=== PATIENT | male | born 1965 | race Caucasian/White ===

== ENCOUNTER 2016-10-15 08:36 | Emergency (ER) | payer BC ==
[~2016-10-15] VITALS: Ht 165.1 cm; Wt 81.6 kg
[~2016-10-15 08:36] MED LIST: CPR500T PO; ERGO2000 PO; ESTR1TAB24 PO; FENO54TA PO; HYDR-3454 PO; LEVO750T24 PO; LVT.05T PO; MTF500T PO; MULT1CAP27 PO; SULF1TAB35 PO
[2016-10-15] MEDS ORDERED: ONDANSETRON 4 MG/2 ML (SDV) Z0FRAN IVP ONE (08:45)
[2016-10-15] MEDS ORDERED: SCOPOLAMINE 1.5 MG (TRANSDERM-SCOP) PATCH TD ONE (08:45)
[2016-10-15 08:51] LABS: BASOPHILS % (AUTO) 1 % (0-10); EOSINOPHILS # (AUTO) 0.3 10^3/uL (0.0-0.3); EOSINOPHILS % (AUTO) 6 % (0-10); LYMPHOCYTES # (AUTO) 2.1 X 10^3 (1.0-4.0); LYMPHOCYTES % (AUTO) 36 % (12-44); MEAN CORPUSCULAR HEMOGLOBIN 30 PG (25-34); MEAN CORPUSCULAR HGB CONC 34 G/DL (32-36); MEAN CORPUSCULAR VOLUME 86 FL (80-99); MEAN PLATELET VOLUME 10.6 FL (7.4-10.4); MONOCYTES # (AUTO) 0.4 X 10^3 (0.0-1.0); MONOCYTES % (AUTO) 6 % (0-12); NEUTROPHILS % (AUTO) 52 % (42-75); PLATELET COUNT 168 10^3/uL (130-400); RED BLOOD COUNT 5.47 10^6/uL (4.35-5.85); RED CELL DISTRIBUTION WIDTH 13.4 % (10.0-14.5); WHITE BLOOD COUNT 5.8 10^3/uL (4.3-11.0)
--- NOTE | 2016-10-15 08:51 | ED General ---
General Stated Complaint: CHEST PAIN,DIZZINESS Source of Information: Patient History of Present Illness Time Seen by Provider: 08:38 Initial Comments PT ARRIVES VIA POV FROM HOME STATES HE WOKE UP AT 0100 WITH CHEST PAIN, LASTED 10 MINUTES AND HE WENT BACK TO SLEEP. [place] [address], ROLLED OVER IN BED AND SUDDENLY BECAME VERY DIZZY AND COULDN' T HARDLY GET OUT OF BED DUE TO SEVERE DIZZINESS--EVERYTHING IS SPINNING HAVING DIFFICULTY WALKING DUE TO DIZZINESS AND FEELING OFF BALANCE HAS HEADACHE IN BACK OF HEAD--RATES 11/18--STATES IT IS WORSE THAN "MIGRAINES" HE HAS HAD IN THE PAST C/O NAUSEA, NO VOMITING STATES HE HAS TO KEEP HIS EYES CLOSED DUE TO DIZZINESS, IS NOT SURE IF VISION IS BLURRY OR NOT NO PARESTHESIAS OR MOTOR DEFICITS STATES HE FEELS SLIGHTLY SHORT OF BREATH PT HAS HAD NIGHT SWEATS FOR MANY YEARS AND IS NOT DIFFERENT TODAY WAS MILDLY DIZZY YESTERDAY, NOT THIS BAD HAS HISTORY OF CHEST PAIN YEARS AGO.-WORK UP IN THE PAST WAS NEGATIVE. NO PROBLEMS SINCE THEN PCP: DR. KEYES Allergies and Home Medications Allergies Coded Allergies: Penicillins (Unverified Allergy, Mild, 11/28/08) Home Medications Fenofibrate 54 Mg Tablet, 54 MG PO DAILY, (Reported) Hydrocodone Bit/Acetaminophen 1 Each Tablet, 1-2 TAB PO Q4-6HR PRN for PAIN, #30 Prescribed by: JOJO WIN on 05/09/14 1219 Levothyroxine Sodium 50 Mcg Tablet, 50 MCG PO DAILY, (Reported) Multivitamins 1 Each Capsule, 1 EACH PO DAILY, (Reported) Constitutional: see HPI, diaphoresis, dizziness EENTM: see HPI Respiratory: see HPI Cardiovascular: see HPI Gastrointestinal: see HPI Musculoskeletal: no symptoms reported Skin: no symptoms reported Psychiatric/Neurological: See HPI Hematologic/Lymphatic: No Symptoms Reported Immunological/Allergic: no symptoms reported Past Rfensmq-Iyjbim-Tglsgs Hx Patient Social History Recent Foreign Travel: No Contact w/Someone Who Travel: No Surgeries HX Surgeries: Yes (left shoulder, left knee scope, nose reconstruction) Surgeries: Orthopedic Respiratory Hx Respiratory Disorders: No Cardiovascular Hx Cardiac Disorders: Yes Cardiac Disorders: High Cholesterol Neurological Hx Neurological Disorders: No Reproductive System Hx Reproductive Disorders: No Genitourinary Hx Genitourinary Disorders: No Gastrointestinal Hx Gastrointestinal Disorders: No Musculoskeletal Hx Musculoskeletal Disorders: Yes Musculoskeletal Disorders: Arthritis Endocrine Hx Endocrine Disorders: Yes (SUPPOSED TO TAKE METFORMIN, BUT QUIT TAKING IT DUE TO DIARRHEA) Endocrine Disorders: Hypothyroidsim, Diabetes, Non-Insulin dep HEENT HX ENT Disorders: No Cancer Hx Cancer: No Psychosocial Hx Psychiatric Problems: No Integumentary HX Skin/Integumentary Disorder: No Blood Transfusions Hx Blood Disorders: No Physical Exam Vital Signs Vital Sign - Last 12Hours 10/15/16 08:37 Temp 97.8 Pulse 68 Resp 18 B/P (MAP) 171/117 Pulse Ox 97 Capillary Refill : General Appearance: No Apparent Distress, WD/WN, Other (KEEPS EYES CLOSED) HEENT: PERRL/EOMI, TMs Normal, Normal ENT Inspection, Pharynx Normal Neck: Full Range of Motion, Normal Inspection, Non Tender, Supple, No Carotid Bruit, No JVD Respiratory: Normal Breath Sounds, No Accessory Muscle Use, No Respiratory Distress Cardiovascular: Regular Rate, Rhythm, No Edema, No JVD, No Murmur, Normal Peripheral Pulses Gastrointestinal: Normal Bowel Sounds, No Organomegaly, No Pulsatile Mass, Non Tender, Soft Back: Normal Inspection, No CVA Tenderness, No Vertebral Tenderness Extremity: Normal Capillary Refill, Normal Inspection, Normal Range of Motion, Non Tender, No Calf Tenderness, No Pedal Edema Neurologic/Psychiatric: Alert, Oriented x3, No Motor/Sensory Deficits, Normal Mood/Affect, manager endoscopy II-XII Norm as Tested, Other (NORMAL FINGER TO NOSE, AND HEEL TO [place]. ) Skin: Normal Color, Warm/Dry, No Diaphoresis Progress/Results/Core Measures Results/Orders Lab Results Laboratory Tests Test 10/15/16 08:40 Range/Units White Blood Count 5.8 4.3-11.0 10^3/uL Red Blood Count 5.47 4.35-5.85 10^6/uL Hemoglobin 16.2 13.3-17.7 G/DL Hematocrit 47 40-54 % Mean Corpuscular Volume 86 80-99 FL Mean Corpuscular Hemoglobin 30 25-34 PG Mean Corpuscular Hemoglobin Concent 34 32-36 G/DL Red Cell Distribution Width 13.4 10.0-14.5 % Platelet Count 168 130-400 10^3/uL Mean Platelet Volume 10.6 H 7.4-10.4 FL Neutrophils (%) (Auto) 52 42-75 % Lymphocytes (%) (Auto) 36 12-44 % Monocytes (%) (Auto) 6 0-12 % Eosinophils (%) (Auto) 6 0-10 % Basophils (%) (Auto) 1 0-10 % Neutrophils # (Auto) 3.0 1.8-7.8 X 10^3 Lymphocytes # (Auto) 2.1 1.0-4.0 X 10^3 Monocytes # (Auto) 0.4 0.0-1.0 X 10^3 Eosinophils # (Auto) 0.3 0.0-0.3 10^3/uL Basophils # (Auto) 0.0 0.0-0.1 10^3/uL Prothrombin Time 11.4 L 12.2-14.7 SEC INR Comment 0.9 0.8-1.4 Activated Partial Thromboplast Time 29 24-35 SEC Sodium Level 139 135-145 MMOL/L Potassium Level 4.1 3.6-5.0 MMOL/L Chloride Level 105 98-107 MMOL/L Carbon Dioxide Level 22 21-32 MMOL/L Anion Gap 12 5-14 MMOL/L Blood Urea Nitrogen 17 7-18 MG/DL Creatinine 0.82 0.60-1.30 MG/DL Estimat Glomerular Filtration Rate > 60 BUN/Creatinine Ratio 21 Glucose Level 102 70-105 MG/DL Calcium Level 9.8 8.5-10.1 MG/DL Magnesium Level 2.5 H 1.8-2.4 MG/DL Total Bilirubin 1.0 0.1-1.0 MG/DL Aspartate Amino Transf (AST/SGOT) 18 5-34 U/L Alanine Aminotransferase (ALT/SGPT) 44 0-55 U/L Alkaline Phosphatase 51 40-136 U/L Total Creatine Kinase 85 30-200 U/L Creatine Kinase MB 1.4 <6.6 NG/ML Troponin I < 0.30 <0.30 NG/ML B-Type Natriuretic Peptide < 10.0 <100.0 PG/ML Total Protein 7.6 6.4-8.2 G/DL Albumin 4.8 H 3.2-4.5 G/DL Amylase Level 25 25-125 U/L Lipase 25 8-78 U/L My Orders Orders - STEFFEN SAEED DO Amylase (10/15/16 08:38) Cbc With Automated Diff (10/15/16 08:38) Comprehensive Metabolic Panel (10/15/16 08:38) Creatine Kinase (10/15/16 08:38) Creatine Kinase Mb (10/15/16 08:38) Lipase (10/15/16 08:38) Partial Thromboplastin Time (10/15/16 08:38) Protime With Inr (10/15/16 08:38) Troponin I (10/15/16 08:38) O2 (10/15/16 08:38) Ekg Tracing (10/15/16 08:38) BNP (10/15/16 08:38) Monitor-Rhythm Ecg Trace Only (10/15/16 08:38) Magnesium (10/15/16 08:38) Scopolamine Patch (Transderm-Scop Patch) (10/15/16 08:45) Ondansetron Injection (Zofran Injectio (10/15/16 08:45) Ct Head Wo (10/15/16 08:44) Accucheck Stat ONCE (10/15/16 08:59) Chest 1 View, Ap/Pa Only (10/15/16 09:16) Meclizine Tablet (Antivert Tablet) (10/15/16 09:30) Diazepam Injection (Valium Injection) (10/15/16 09:30) Ketorolac Injection (Toradol Injection) (10/15/16 09:30) Medications Given in ED Current Medications Medications Dose Ordered Sig/Jerod Route Start Time Stop Time Status Last Admin Dose Admin Diazepam 2.5 mg ONCE ONCE IV 10/15/16 09:30 10/15/16 09:31 DC 10/15/16 09:32 2.5 MG Ketorolac Tromethamine 30 mg ONCE ONCE IVP 10/15/16 09:30 10/15/16 09:59 DC 10/15/16 09:37 30 MG Meclizine HCl 50 mg ONCE ONCE PO 10/15/16 09:30 10/15/16 09:31 DC 10/15/16 09:32 50 MG Ondansetron HCl 4 mg ONCE ONCE IVP 10/15/16 08:45 10/15/16 08:46 DC 10/15/16 08:47 4 MG Scopolamine 1.5 mg ONCE ONCE TD 10/15/16 08:45 10/15/16 08:46 DC 10/15/16 08:48 1.5 MG Vital Signs/I&O Vital Sign - Last 12Hours 10/15/16 08:37 Temp 97.8 Pulse 68 Resp 18 B/P (MAP) 171/117 Pulse Ox 97 Progress Note : Progress Note ALL SYMPTOMS NEARLY COMPLETELY RESOLVED WITH MEDICATIONS --STATES HE FEELS "100 % BETTER" AND PT IS ABLE TO STAND AND WALK WITHOUT DIFFICULTY AND HEADACHE IS GONE PRIOR TO DISMISSAL PT FEELS COMFORTABLE GOING HOME ECG Initial ECG Impression Time: 08:40 Initial ECG Rate: 76 Initial ECG Rhythm: Normal Sinus Initial ECG Comparisson: Unchanged Diagnostic Imaging Comments CT HEAD--NO ACUTE PROCESS, PER RADIOLOGIST REPORT @ 0924 CXR--NO ACUTE PROCESS, PER RADIOLOGIST REPORT @ Reviewed: Reviewed by Me Departure Impression Impression: Primary Impression: Vertigo Additional Impressions: BRIEF CHEST PAIN HTN (hypertension) Disposition: 01 HOME, SELF-CARE Condition: Improved Departure-Patient Inst. Referrals: VIKASH KEYES DO (PCP) Primary Care Physician DEANNA KEYES DNP (Family) Primary Care Physician Patient Instructions: Chest Pain (DC), High Blood Pressure (DC), Vertigo (a Type of Dizziness) (DC) Add. Discharge Instructions: SLOW POSITION CHANGES LOTS OF CLEAR LIQUIDS FOLLOW UP WITH DR. KEYES IN 1-2 DAYS RETURN TO ER IF WORSE Scripts Diazepam (Valium) 5 Mg Tablet 0.5-1 TAB PO Q4H for Dizziness, #10 TAB Prov: STEFFEN SAEED DO 10/15/16 Meclizine HCl (Meclizine HCl) 25 Mg Tablet 25-50 MG PO Q6H for Dizziness, #30 TAB Prov: STEFFEN SAEED DO 10/15/16 Ondansetron (Zofran Odt) 4 Mg Tab.rapdis 4 MG PO Q4H for Nausea/Vomiting, #10 TAB Prov: STEFFEN SAEED DO 10/15/16 Scopolamine (Transderm-Scop) 1 Each Patch.td72 1 EACH TD Q72 HOURS for Dizziness, #3 PATCH Prov: STEFFEN SAEED DO 10/15/16 STEFFEN SAEED DO Oct 15, 2016 08:51
[2016-10-15 09:06] LABS: INR 0.9 (0.8-1.4); PROTHROMBIN TIME PATIENT 11.4 SEC (12.2-14.7)
[2016-10-15 09:13] LABS: ALANINE AMINOTRANSFERASE 44 U/L (0-55); ALBUMIN 4.8 G/DL (3.2-4.5); AMYLASE 25 U/L (25-125); ANION GAP 12 MMOL/L (5-14); ASPARTATE AMINO TRANSFERASE 18 U/L (5-34); BLOOD UREA NITROGEN 17 MG/DL (7-18); BUN/CREATININE RATIO 21; CALCIUM 9.8 MG/DL (8.5-10.1); CARBON DIOXIDE 22 MMOL/L (21-32); CHLORIDE 105 MMOL/L (98-107); CREATINE KINASE 85 U/L (30-200); CREATININE SERUM 0.82 MG/DL (0.60-1.30); GFR ESTIMATED > 60; GLUCOSE 102 MG/DL (70-105); LIPASE 25 U/L (8-78); MAGNESIUM 2.5 MG/DL (1.8-2.4); POTASSIUM 4.1 MMOL/L (3.6-5.0); SODIUM 139 MMOL/L (135-145); TOTAL PROTEIN 7.6 G/DL (6.4-8.2)
[2016-10-15 09:19] LABS: TROPONIN I < 0.30 NG/ML (<0.30)
--- NOTE | 2016-10-15 09:22 | Diagnostic Imaging Report ---
PROCEDURE: CT head without contrast. TECHNIQUE: Multiple contiguous axial images were obtained through the brain without the use of intravenous contrast. INDICATION: Refractory headache The ventricles are normal in size, shape and position. There are no masses or hemorrhages. There are no extra-axial fluid collections. Impression: Negative CT head Dictated by: Dictated on workstation # [id number]
--- NOTE | 2016-10-15 09:23 | Diagnostic Imaging Report ---
INDICATION: Shortness of breath EXAMINATION: Portable chest at 9:03 AM. Heart size and pulmonary vascularity are normal. Lungs are clear. There are no effusions or pneumothoraces. IMPRESSION: Negative chest. Dictated by: Dictated on workstation # [id number]
[2016-10-15] MEDS ORDERED: KETOROLAC 30 MG/ML VIAL IVP ONE (09:30)
[2016-10-15] MEDS ORDERED: DIAZEPAM INJ 10 MG/2 ML (VALIUM) SYR IV ONE (09:30)
[2016-10-15] MEDS ORDERED: MECLIZINE 25 MG (ANTIVERT) TAB PO ONE (09:30)
[2016-10-15] MEDS ORDERED: ONDA4TAB8 PO (10:08)
[2016-10-15] MEDS ORDERED: MECL-106 PO (10:08)
[2016-10-15] MEDS ORDERED: SCOP1PAT TD (10:08)
[2016-10-15] MEDS ORDERED: DIAZ5TAB PO (10:08)
[2016-10-15 10:22] VITALS: BP 149/85
== END 2016-10-15 10:22 | disposition home or self-care (01) ==
LOC: EDUNIT# 08:36 → ER 08:39
DX: R42 Dizziness and giddiness (principal); E03.9 Hypothyroidism, unspecified; I10 Essential (primary) hypertension; R07.9 Chest pain, unspecified; E11.9 Type 2 diabetes mellitus without complications
CPT/HCPCS: 36415; 70450; 71010; 80053; 82150; 82550; 82553; 82962; 83690; 83735; 83880; 84484; 85025; 85610; 85730; 93005; 93041

== ENCOUNTER → 2017-04-15 | Outpatient (CLI) | payer BC ==
[~2017-04-15] MED LIST changes: +DIAZ5TAB PO; +MECL-106 PO; +ONDA4TAB8 PO; +SCOP1PAT TD
--- NOTE | 2017-04-15 11:10 | Diagnostic Imaging Report ---
EXAMINATION: Scrotal ultrasound. INDICATION: Left-sided scrotal pain. FINDINGS: The right testicle is 4.7 x 2.8 x 3.1 cm. The left testicle is 4.5 x 2.7 x 3.3 cm. Both testicles demonstrate homogeneous echotexture with no focal mass. Arterial waveforms are demonstrated over both testicles. Bilateral mild hydroceles are seen. No varicocele. No epididymis abnormality is identified. IMPRESSION: Bilateral small hydroceles. Dictated by: Dictated on workstation # [id number]
== END ==
LOC: RAD 09:09
PROVIDERS: ATTEND Urology
DX: N43.3 Hydrocele, unspecified (principal)
CPT/HCPCS: 76870

== ENCOUNTER 2020-08-28 05:39 | Outpatient (CLI) | payer BC ==
[~2020-08-28] VITALS: Ht 166 cm; Wt 86.4 kg
[~2020-08-28 05:39] MED LIST changes: -MECL-106 PO; +MECL-149 PO; -SCOP1PAT TD; +SCOP1PAT11 TD
[2020-08-28] MEDS ORDERED: ASPI-999 PO (11:10)
[2020-08-28] MEDS ORDERED: GREE1CAP PO (11:10)
[2020-08-28] MEDS ORDERED: BUSP5TAB59 PO (11:10)
[2020-08-28] MEDS ORDERED: ALPR0.5T7 PO (11:10)
[2020-08-28] MEDS ORDERED: CHOL500050 PO (11:10)
[2020-08-28] MEDS ORDERED: ATOR80TA76 PO (11:10)
[2020-08-28] MEDS ORDERED: NAPR-915 PO (11:10)
[2020-08-28] MEDS ORDERED: ACYC800T PO (11:10)
[2020-08-28] MEDS ORDERED: CARV12.53 PO (11:10)
[2020-08-28] MEDS ORDERED: CLOP75TA69 PO (11:10)
[2020-08-28] MEDS ORDERED: LISI40TA9 PO (11:10)
[2020-08-28] MEDS ORDERED: LEVO75TA6 PO (11:10)
[2020-08-28] MEDS ORDERED: VITA1TAB33 PO (11:10)
[2020-08-28] MEDS ORDERED: [UNRECOGNIZED DRUG - CODE] PO (11:10)
== END 2020-08-28 11:24 | disposition home or self-care (01) ==
LOC: PREOP 05:39
PROVIDERS: ATTEND Orthopaedic Surgery
DX: Z01.818 Encounter for other preprocedural examination (principal)

== ENCOUNTER 2020-09-06 05:58 | Day surgery (SDC) | payer BC ==
--- NOTE | 2020-08-24 08:10 | HISTORY AND PHYSICAL ---
DATE OF SERVICE: ADMISSION HISTORY AND PHYSICAL DATE OF ADMISSION: 09/06/2020. This will be for outpatient surgery on 09/06/2020 for left knee arthroscopy. HISTORY OF PRESENT ILLNESS: The patient is a 55-year-old gentleman with complaints of left knee pain. He has previously undergone a left knee arthroscopy, but reports progressively worsening left knee pain, catching, locking and swelling. He reports pain with twisting and kneeling. He reports this is limiting his work activities. He denies any specific injury. Radiographs reveal mild medial patellofemoral joint space narrowing. Due to functional impairment and failure to improve with conservative measures, the patient has elected to proceed with the surgical intervention. REVIEW OF SYSTEMS: No chest pain, no shortness of breath, and no dysuria. PAST MEDICAL HISTORY: Coronary artery disease. PAST SURGICAL HISTORY: Left shoulder arthroscopy, left knee arthroscopy, deviated septum, cardiac catheterization, and coronary stent placement. FAMILY HISTORY: Significant for cancer. PRIMARY CARE PROVIDER: Dr. Herring. MEDICATIONS: Tyrosine, carvedilol, atorvastatin, Plavix, lisinopril, buspirone, alprazolam, levothyroxine, acyclovir, and Naprosyn. ALLERGIES: PENICILLIN. SOCIAL HISTORY: The patient denies tobacco use. He drinks alcohol rarely. PHYSICAL EXAMINATION: GENERAL: The patient is well-developed, well-nourished, in no acute distress. HEENT: Normocephalic and atraumatic. Pupils are equal, round, and reactive to light. Oropharynx is clear. NECK: Supple, no lymphadenopathy. LUNGS: Clear to auscultation bilaterally. HEART: Regular rate and rhythm. ABDOMEN: Soft, nontender, nondistended. EXTREMITIES: The left knee demonstrates varus alignment. He has a mild effusion. He is tender along his medial joint space. He has pain medially with Franchesca. There is no varus valgus laxity. Negative anterior and posterior drawer. Ambulates with an antalgic gait. IMPRESSION: Left knee medial meniscus tear with chondromalacia. PLAN: Left knee arthroscopy, partial medial meniscectomy and chondroplasty. The risks, benefits, options, ramifications and recovery were discussed at length with the patient. He understands and wishes to proceed. Job ID: [id number] DocumentID: [id number] Dictated Date: 08/21/2020 08:17:43 Cool Roofing Installer Date: 08/21/2020 09:52:07 Dictated By: LUNA STORY MD
[~2020-09-06] VITALS: Ht 166 cm; Wt 86.4 kg
[2020-09-06] VITALS (11 sets, daily range): BP systolic 114–147; BP diastolic 79–102
[~2020-09-06 05:58] MED LIST changes: +ACYC-112 PO; +ALPR0.5T7 PO; +ASPI-999 PO; +ATOR80TA76 PO; +BUSP5TAB59 PO; +CARV12.53 PO; +CHOL500050 PO; +CLOP75TA69 PO; +GREE1CAP PO; +LEVO75TA6 PO; +LISI40TA9 PO; +NAPR-915 PO; +VITA1TAB33 PO; +[UNRECOGNIZED DRUG - CODE] PO
[2020-09-06] MEDS ORDERED: CLINDAMYCIN 600 MG/50 ML IVPB 50 ML IV ONE (06:00)
[2020-09-06] MEDS: LACTATED RINGERS 1,000 ML IV PRN ×2 (06:23→08:08)
[2020-09-06] MEDS ORDERED: proPOfol 200 MG/20 ML (DIPRIVAN) VIAL IV ONE ×2 (06:30→07:38)
[2020-09-06] MEDS ORDERED: fentaNYL INJ 100 MCG/2 ML AMP ONE (06:30)
[2020-09-06] MEDS ORDERED: LIDOCAINE PF 2% 5 ML (XYLOCAINE) VIAL ONE (06:30)
[2020-09-06] MEDS ORDERED: ONDANSETRON 4 MG/2 ML (SDV) Z0FRAN ONE (06:30)
[2020-09-06] MEDS ORDERED: MIDAZOLAM 2 MG/2 ML (VERSED) VIAL ONE (06:31)
[2020-09-06] MEDS ORDERED: SEVOFLURANE (ULTANE) 15 ML INHAL SOLN ONE (06:41)
[2020-09-06] MEDS ORDERED: morphine PF (DURAMORPH) 10 MG/10 ML AMP ONE (07:08)
[2020-09-06] MEDS ORDERED: BUPIVACAINE 0.25% 30 ML (SENSORCAINE) VIAL ONE (07:08)
[2020-09-06] MEDS ORDERED: HYDROcodone/APAP 7.5 MG/325 MG (LORTAB, LORCET PLUS) TABLET PO PRN (07:15)
--- NOTE | 2020-09-06 07:25 | Progress Note-Pre Operative ---
Pre-Operative Progress Note H&P Reviewed The H&P was reviewed, patient examined and no changes noted. Date Seen by Provider: Sep 06, 2020 Time Seen by Provider: 07:15 Date H&P Reviewed: Sep 06, 2020 Time H&P Reviewed: 07:11 Pre-Operative Diagnosis: left knee medial meniscus tear and chondromalacia LUNA STORY MD Sep 06, 2020 07:25
--- NOTE | 2020-09-06 07:26 | Progress Note-Post Operative ---
Post-Operative Progess Note Surgeon (s)/Blower And Compressor Assembler (s) Surgeon LUNA STORY MD Blower And Compressor Assembler: Karsten Holcomb Pre-Operative Diagnosis left knee medial meniscus tear and chondromalacia Post-Operative Diagnosis left knee medial meniscus tear and chondromalacia of the medial femoral condyle and trochlea Procedure & Operative Findings Date of Procedure 09/06/20 Procedure Performed/Findings left knee arthroscopic partial medial meniscectomy and chondroplasty of the medial femoral condyle and trochlea Anesthesia Type GETA Estimated Blood Loss Estimated blood loss (mL): minimal Specimens/Packing Specimens Removed none Packing: none LUNA STORY MD Sep 06, 2020 07:26
[2020-09-06] MEDS ORDERED: morphine INJ 10 MG/ML 1ML (SYR OR VIAL) IVP ONE (07:30)
[2020-09-06] MEDS ORDERED: HYDROmorphone 2 MG/ML VIAL (DILAUDID) IV ONE (07:30)
[2020-09-06] MEDS ORDERED: ONDANSETRON 4 MG/2 ML (SDV) Z0FRAN IVP PRN (07:30)
[2020-09-06] MEDS ORDERED: HYDROmorphone 2 MG/ML VIAL (DILAUDID) ONE (07:47)
[2020-09-06] MEDS ORDERED: ESMOLOL 100 MG/10 ML (BREVIBLOC) VIAL ONE (08:00)
[2020-09-06] MEDS ORDERED: HYDR-3817 PO ×2 (09:28→09:30)
--- NOTE | 2020-09-06 09:57 | Anesthesia-General Post-Op ---
General Patient Condition Mental Status/LOC: Same as Preop Cardiovascular: Satisfactory Nausea/Vomiting: Absent Respiratory: Satisfactory Pain: Controlled Complications: Absent Post Op Complications Complications None Follow Up Care/Instructions Patient Instructions None needed. Anesthesia/Patient Condition Patient Condition Patient is doing well, no complaints, stable vital signs, no apparent adverse anesthesia problems. CLAUDETTE CORONEL DO Sep 06, 2020 09:57
--- NOTE | 2020-09-06 12:31 | Physical Therapy Ortho Eval ---
PT Orthopedic Evaluation Type of Surgery Knee Scope (L TMM) Prior Level of Function Current Living Status: Spouse Locomotion (Upon Admit): Independent Established Durable Medical Eq: Front Wheeled Walker, Crutches Subjective Subjective Pt reports he has crutches at home and a FWW; reports he has used both before. Reports he has been performing the ther ex at home as well. Entry Into Home: Stairs With Railing Steps Into Home: 2 (with railing) Motor Control Motor Control: Motor Control WNL ROM ROM: WFL Strength Strength: WFL Transfer SCALE: Activities may be completed with or without assistive devices. 4-Mlkaxyohsv-iygbxit completes the activity by him/herself with no assistance from a helper. 5-Set-up or Clean-up Assistance-helper sets up or cleans up; patient completes activity. [place] assists only prior to or following the activity. 4-Supervision or Touching Assistance-helper provides verbal cues and/or touching/steadying and/or contact guard assistance as patient completes activity. Assistance may be provided throughout the activity or intermittently. 3-Partial/Moderate Assistance-helper does LESS THAN HALF the effort. [place] lifts, holds or supports trunk or limbs, but provides less than half the effort. 2-Substantial/Maximal Assistance-helper does MORE THAN HALF the effort. [place] lifts or holds trunk or limbs and provides more than half the effort. 2-Cjncafsrj-kjeryj does ALL the effort. Patient does none of the effort to complete the activity. Or, the assistance of 2 or more helpers is required for the patient to complete the activity. If activity was not attempted, code reason: 7-Patient Refused. 9-Not Applicable-not attempted and the patient did not perform the activity before the current illness, exacerbation or injury. 10-Not Attempted due to Environmental Limitations-(lack of equipment, weather restraints, etc.). 88-Not Attempted due to Medical Conditions or Safety Concerns. Transfers (B, C, W/C) (QC): 4 (6 post eval) Gait Gait Assistive Device: FWW Right Lower Extremity: Right Weight Bearing Status RLE: Full Weight Bearing Left Lower Extremity: Left Weight Bearing Status LLE: Weight Bearing/Tolerated Gait (QC): 4 (6 post visit) Distance (QC): 3=150 ft Summary/Comments Gait training with FWW, pt demonstrated mod indep and safe; up/down a step with walker with correct sequencing. Education in use of crutches, should he decide to use later. Verbalized understanding. Education on WBAT Treatment Rendered Treatment: Therapeutic Exercises, Gait Train, Step Train Exercise Instruction: Quad Sets, Straight Leg Raise, Heel Slides Assessment/Goals Goal Time Frame: 1 Visit Understands HEP: Yes Safe Ambulation: Yes Plan Treatment Plan: Discharge Pt understands HEP; pt safe with use of FWW on level surfaces and steps. PT/Family Agrees to Plan: Yes Time Time In: 940 Time Out: 1000 Total Billed Treatment Time: 20 Billed Treatment Time visit EVL 20 СЕРГЕЙ GOMES PT Sep 06, 2020 12:31
--- NOTE | 2020-09-06 12:55 | OPERATIVE REPORT ---
DATE OF SERVICE: 09/06/2020 PREOPERATIVE DIAGNOSES: 1. Left knee medial meniscus tear. 2. Left knee chondromalacia of the medial femoral condyle. POSTOPERATIVE DIAGNOSES: 1. Left knee medial meniscus tear. 2. Left knee chondromalacia of the medial femoral condyle. 3. Left knee chondromalacia of the trochlea. PROCEDURES: 1. Left knee arthroscopic partial medial meniscectomy. 2. Left knee arthroscopic chondroplasty of the medial femoral condyle. 3. Left knee arthroscopic chondroplasty of the trochlea. SURGEON: Thomas Story MD MANAGER LANGUAGE: Karsten Holcomb, who assisted throughout the procedure and closed the incisions. ANESTHESIA: General endotracheal by Dr. Wolfe. TOURNIQUET TIME: Not applicable. ESTIMATED BLOOD LOSS: Minimal. DRAINS: None. COMPLICATIONS: None. POSTOPERATIVE PLAN: Routine arthroscopy protocol. The patient was transferred to the recovery room awake and in stable condition. STATEMENT OF MEDICAL NECESSITY: The patient is a 55-year-old gentleman with progressively worsening left medial knee pain, catching, locking and swelling. He had tenderness along his medial joint line and had pain with patellar loading. Radiographs revealed moderate medial joint space narrowing due to functional impairment and failure to improve with conservative measures. The patient elected to proceed with surgical intervention. Examination under anesthesia revealed range of motion of 0/2/130 with negative Roberto, negative anterior and posterior drawer. No varus valgus laxity, negative pivot shift. Arthroscopic findings, the patella demonstrated grade II chondral softening centrally with no unstable chondral flaps. The trochlea demonstrated grade IV chondral flap in a 5 x 5 area centrally. The medial and lateral gutters were clear. ACL and PCL were intact. Lateral compartment demonstrated no significant meniscal or chondral pathology. The medial compartment demonstrated grade IV chondral loss in an 8 x 8 area over the medial aspect of the tibial plateau. The femoral condyle demonstrated grade III chondral loss in a 15 x 15 area centrally. The posterior horn of the medial meniscus demonstrated a complex tear, which extended into the body and involved approximately one-half of the posterior horn and body. DESCRIPTION OF PROCEDURE: After risks and benefits of procedure were discussed and questions were answered, an informed consent was signed and placed on chart, the operative site was confirmed in the preoperative holding area initialed by the surgeon. The patient was then transported to the operating room. After adequate levels of general endotracheal anesthetic were obtained, a timeout was called, confirming the operative site and examination under anesthesia was performed with above findings noted. The left lower extremity was prepped and draped in the usual sterile fashion. The knee joint was injected with 60 mL of fluid and standard inferolateral portal placed with the arthroscope under direct visualization, inferior medial portal was created. The menisci and cruciates carefully probed with the above findings noted. The unstable chondral flap on the trochlea was debrided with a shaver and a biter back to a stable edge. This was carefully probed with no further tearing or instability noted. Scope was redirected into the medial compartment and unstable chondral flap on the medial femoral condyle was debrided with a shaver back to a stable edge and the posterior horn and body. The medial meniscus was debrided with a shaver and biter back to a stable edge. This was carefully probed with no further tearing or instability noted. The knee was copiously irrigated. Port sites were closed with 4-0 nylon in simple interrupted fashion. Knee was injected with Duramorph. Port sites were infiltrated with plain Marcaine. A soft dressing was applied. The patient was transferred to the recovery room awake and in stable condition. Job ID: [id number] DocumentID: [id number] Dictated Date: 09/06/2020 08:23:58 Solutions Manager Date: 09/06/2020 12:53:07 Dictated By: THOMAS STORY MD
== END 2020-09-06 10:20 | disposition home or self-care (01) ==
LOC: SDC 05:58
PROVIDERS: ATTEND Orthopaedic Surgery
DX: S83.242A Other tear of medial meniscus, current injury, left knee, initial encounter (principal); M94.262 Chondromalacia, left knee; I10 Essential (primary) hypertension; G47.33 Obstructive sleep apnea (adult) (pediatric); E03.9 Hypothyroidism, unspecified; M19.90 Unspecified osteoarthritis, unspecified site; G62.9 Polyneuropathy, unspecified; E66.9 Obesity, unspecified; Z68.31 Body mass index [BMI] 31.0-31.9, adult; Z79.890 Hormone replacement therapy; Z79.899 Other long term (current) drug therapy; Z88.0 Allergy status to penicillin; Z95.5 Presence of coronary angioplasty implant and graft
CPT/HCPCS: 87081

== ENCOUNTER → 2021-01-09 | Outpatient (CLI) | payer BC ==
[~2021-01-09] MED LIST changes: +CATHETER FLUSH 10 ML SYR IV PRN; +HYDR-3817 PO; +REGADENOSON 0.4 MG/5 ML SYR (LEXISCAN) IV ONE
[2021-01-09 13:02] VITALS: BP 144/89
--- NOTE | 2021-01-10 10:10 | STRESS TEST ---
DATE OF SERVICE: 01/09/2021 RESTING AND POST REGADENOSON TECHNETIUM-99M TETROFOSMIN SPECT CT IMAGING ORDERING PHYSICIAN: Dr. Pino. PRIMARY PHYSICIAN: Dr. Herring. CLINICAL DIAGNOSIS: Coronary artery disease. Baseline images were carried out after injection of 10.36 mCi of technetium-99m Tetrofosmin. This was followed by 0.4 mg regadenoson and 29.5 mCi of technetium-99m Tetrofosmin. Stress imaging was then performed. The electrocardiogram showed sinus rhythm at baseline. It did not change significantly with the regadenoson infusion. The patient tolerated the procedure well. Review of images at rest and following stress does not indicate any distinct perfusion defects consistent with significant myocardial ischemia or infarction. Gated images show normal global left ventricular systolic function with normal regional wall motion. Left ventricular ejection fraction is calculated to be 61%. CONCLUSIONS: 1. No evidence of any significant myocardial ischemia or infarction on this study. 2. Normal regional wall motion. 3. Normal global left ventricular systolic function with a calculated ejection fraction of 61%. Job ID: [id number] DocumentID: [id number] Dictated Date: 01/10/2021 08:27:42 Library Director Date: 01/10/2021 10:08:43 Dictated By: NICOLÁS PINO MD, MA, FACP, FACC,
== END ==
LOC: CARD 11:00
PROVIDERS: ATTEND Internal Medicine Cardiovascular Disease
DX: I25.10 Atherosclerotic heart disease of native coronary artery without angina pectoris (principal)
CPT/HCPCS: 78452; 93017; 93306; A9502

== ENCOUNTER 2021-02-03 10:47 | Emergency (ER) | payer BC ==
[~2021-02-03] VITALS: Ht 165 cm; Wt 86.0 kg
[~2021-02-03 10:47] MED LIST changes: -CATHETER FLUSH 10 ML SYR IV PRN; -REGADENOSON 0.4 MG/5 ML SYR (LEXISCAN) IV ONE
--- NOTE | 2021-02-03 11:12 | ED Lower Extremity ---
General Chief Complaint: Lower Extremity Stated Complaint: LEFT CALF SWELLING, PAIN, CRAMPING Source: patient Exam Limitations: no limitations History of Present Illness Date Seen by Provider: Feb 03, 2021 Time Seen by Provider: 10:54 Initial Comments Patient is a 56-year-old male who presents to the emergency room with a chief complaint of left calf swelling pain and cramping. Symptoms ongoing about a week. Patient denies any recent prolonged immobility or travel. No personal history of cancer or clotting disorder. No family history of clotting disorders that he is aware of. He had Covid about a month to 6 weeks ago. Denies any fevers, chills, cough or congestion. 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 He is not necessarily short of breath. His oxygen saturation is 96% on room air. 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 He has taken some Tylenol for pain. States that as he is up and walking around on his leg it tends to swell more throughout the day. Woke up this morning had discomfort but not as much swelling. All other review of systems reviewed and negative except as stated. Onset: last week Pain/Injury Location: left leg Allergies and Home Medications Allergies Coded Allergies: Penicillins (Unverified Allergy, Mild, 08/28/20) Patient Home Medication List Home Medication List Reviewed: Yes Acyclovir (Acyclovir) 800 Mg Tablet, 800 MG PO DAILY, (Reported) Entered as Reported by: TOMMY EUBANKS on 08/28/20 111 Alprazolam (Alprazolam) 0.5 Mg Tablet, 0.25 MG PO Q12H, (Reported) Entered as Reported by: TOMMY EUBANKS on 08/28/20 111 Aspirin (Aspirin) 81 Mg Tab.chew, 81 MG PO DAILY, (Reported) Entered as Reported by: TOMMY EUBANKS on 08/28/20 111 Atorvastatin Calcium (Atorvastatin Calcium) 80 Mg Tablet, 80 MG PO DAILY, (Reported) Entered as Reported by: TOMMY EUBANKS on 08/28/20 111 B Complex with Vitamin C (Super B Complex-Vitamin C) 1 Each Tablet, 1 EACH PO DAILY, (Reported) Entered as Reported by: TOMMY EUBANKS on 08/28/20 111 Buspirone HCl (Buspirone HCl) 5 Mg Tablet, 5 MG PO BID, (Reported) Entered as Reported by: TOMMY EUBANKS on 08/28/20 111 Carvedilol (Carvedilol) 12.5 Mg Tablet, 12.5 MG PO BID, (Reported) Entered as Reported by: TOMMY EUBANKS on 08/28/20 111 Cholecalciferol (Vitamin D3) (Vitamin D3) 125 Mcg Capsule, 125 MCG PO DAILY, (Reported) Entered as Reported by: TOMMY EUBANKS on 08/28/201109 Clopidogrel Bisulfate (Plavix) 75 Mg Tablet, 75 MG PO DAILY, (Reported) Entered as Reported by: TOMMY EUBANKS on 08/28/20 111 Green Tea [place] Extract (Green Tea) 1 Each Capsule, 1 EACH PO DAILY, (Reported) Entered as Reported by: TOMMY EUBANKS on 08/28/20 111 Hydrocodone/Acetaminophen (Hydrocodone-Acetamin 7.5-325) 1 Each Tablet, 1 EACH PO Q4H Prescribed by: TOMMY EUBANKS on 09/06/20 0930 Levothyroxine Sodium (Levothyroxine Sodium) 75 Mcg Tablet, 75 MCG PO DAILY, (Reported) Entered as Reported by: TOMMY EUBANKS on 08/28/20 111 Lisinopril (Lisinopril) 40 Mg Tablet, 40 MG PO DAILY, (Reported) Entered as Reported by: TOMMY EUBANKS on 08/28/20 111 Multivitamins (Multivitamins) 1 Each Capsule, 1 EACH PO DAILY, (Reported) Entered as Reported by: YAEL STEPHENS on 06/16/12 0727 Naproxen (Naproxen) 500 Mg Tablet, 500 MG PO Q12H, (Reported) Entered as Reported by: TOMMY EUBANKS on 08/28/20 111 Ondansetron (Zofran Odt) 4 Mg Tab.rapdis, 4 MG PO Q4H Prescribed by: STEFFEN SAEED on 10/15/16 1008 Tyrosine (Tyrosine) 1 Each Packet, 1 EACH PO DAILY, (Reported) Entered as Reported by: TOMMY EUBANKS on 08/28/20 111 Review of Systems Constitutional: see HPI EENTM: no symptoms reported Respiratory: other (left chest wall pain) Cardiovascular: no symptoms reported Gastrointestinal: no symptoms reported Genitourinary: no symptoms reported Musculoskeletal: other (swelling and discomfort left lower leg) Skin: no symptoms reported Psychiatric/Neurological: No Symptoms Reported All Other Systems Reviewed Negative Unless Noted: Yes Past Ducinra-Offsjx-Bflhlj Hx Patient Social History Tobacco Use?: No Substance use?: No Alcohol Use?: Yes Alcohol Frequency: Daily Pt feels they are or have been: No Past Medical History Surgeries: Yes (left shoulder, left knee scope, nose reconstruction, left toe bone spur ) Cardiac, Coronary Stent, Nose, Orthopedic Respiratory: Yes Sleep Apnea Currently Using CPAP: Yes Cardiac: Yes (heart stents) High Cholesterol, Hypertension Neurological: No Reproductive Disorders: No Sexually Transmitted Disease: No Genitourinary: No Gastrointestinal: No Musculoskeletal: Yes Arthritis Endocrine: No Hypothyroidsim Cancer: No Psychosocial: Yes Anxiety Integumentary: No Blood Disorders: No Physical Exam Vital Signs Vital Signs - First Documented 02/03/21 02/03/21 10:56 11:35 Temp 36.6 Pulse 77 Resp 20 B/P (MAP) 164/90 (114) Pulse Ox 97 O2 Delivery Room Air Capillary Refill : Height, Weight, BMI Height: 5'5.00" Weight: 180lbs. oz. 81.394146xa; 31.35 BMI Method:Stated General Appearance: WD/WN, no apparent distress HEENT: PERRL/EOMI Neck: normal inspection Cardiovascular: regular rate, rhythm, no murmur Respiratory: lungs clear, normal breath sounds, no respiratory distress, no accessory muscle use, other (tenderness to palpation left chest wall just inferior and lateral to the left nipple) Gastrointestinal: normal bowel sounds, non tender, soft Back: normal inspection Hips: bilateral hip normal range of motion, bilateral hip no evidence of injury Legs: left leg soft tissue tenderness (left calf, + Nidhi's sign) Knees: bilateral knee non-tender, bilateral knee normal inspection, bilateral knee normal range of motion, bilateral knee no evidence of injury Ankles: bilateral ankle non-tender, bilateral ankle normal inspection, bilateral ankle normal range of motion, bilateral ankle no evidence of injury Feet: bilateral foot non-tender, bilateral foot normal inspection, bilateral foot normal range of motion, bilateral foot no evidence of injury Neurologic/Tendon: normal sensation, normal motor functions Neurologic/Psychiatric: alert, normal mood/affect, oriented x 3 Skin: normal color, warm/dry, other (superficial abrasions/scratches to left lower leg (from fall 2 days ago)) Progress/Results/Core Measures Results/Orders Lab Results Laboratory Tests Test 02/03/21 11:15 Range/Units White Blood Count 5.0 4.3-11.0 10^3/uL Red Blood Count 4.36 4.30-5.52 10^6/uL Hemoglobin 13.5 13.3-17.7 g/dL Hematocrit 39 L 40-54 % Mean Corpuscular Volume 90 80-99 fL Mean Corpuscular Hemoglobin 31 25-34 pg Mean Corpuscular Hemoglobin Concent 34 32-36 g/dL Red Cell Distribution Width 13.4 10.0-14.5 % Platelet Count 185 130-400 10^3/uL Mean Platelet Volume 10.2 9.0-12.2 fL Immature Granulocyte % (Auto) 0 % Neutrophils (%) (Auto) 59 42-75 % Lymphocytes (%) (Auto) 28 12-44 % Monocytes (%) (Auto) 7 0-12 % Eosinophils (%) (Auto) 6 0-10 % Basophils (%) (Auto) 1 0-10 % Neutrophils # (Auto) 2.9 1.8-7.8 10^3/uL Lymphocytes # (Auto) 1.4 1.0-4.0 10^3/uL Monocytes # (Auto) 0.3 0.0-1.0 10^3/uL Eosinophils # (Auto) 0.3 0.0-0.3 10^3/uL Basophils # (Auto) 0.1 0.0-0.1 10^3/uL Immature Granulocyte # (Auto) 0.0 0.0-0.1 10^3/uL Prothrombin Time 12.6 12.2-14.7 SEC INR Comment 0.9 0.8-1.4 Activated Partial Thromboplast Time 30 24-35 SEC D-Dimer < 0.27 0.00-0.49 UG/ML Sodium Level 139 135-145 MMOL/L Potassium Level 3.8 3.6-5.0 MMOL/L Chloride Level 105 98-107 MMOL/L Carbon Dioxide Level 22 21-32 MMOL/L Anion Gap 12 5-14 MMOL/L Blood Urea Nitrogen 19 H 7-18 MG/DL Creatinine 0.89 0.60-1.30 MG/DL Estimat Glomerular Filtration Rate 89 BUN/Creatinine Ratio 21 Glucose Level 116 H 70-105 MG/DL Calcium Level 9.3 8.5-10.1 MG/DL My Orders Orders - YAEL READ MD Ed Iv/Invasive Line Start (02/03/21 11:05) Cbc With Automated Diff (02/03/21 11:05) Basic Metabolic Panel (02/03/21 11:05) Fibrin Degradation Products (02/03/21 11:05) Partial Thromboplastin Time (02/03/21 11:05) Protime With Inr (02/03/21 11:05) Chest 1 View, Ap/Pa Only (02/03/21 11:05) Us Venous Lower Ext Lt (02/03/21 12:13) Vital Signs/I&O 02/03/21 02/03/21 02/03/21 02/03/21 10:56 11:35 12:13 12:33 Temp 36.6 Pulse 77 76 74 66 Resp 20 18 18 18 B/P (MAP) 164/90 (114) 137/83 140/87 142/87 Pulse Ox 97 97 95 95 O2 Delivery Room Air Room Air 02/03/21 02/03/21 13:29 13:59 Pulse 73 71 Resp 18 18 B/P (MAP) 149/93 145/92 Pulse Ox 96 97 O2 Delivery Room Air Room Air Progress Progress Note : Time: 12:15 Progress Note labs and chest xray look good. vital signs stable. US coming in for another patient, so will go ahead and get the DVT study done today as opposed to bringing him back in on friday morning. 1403 DVT study negative for clot/ WIll recommend ice/heat and tylenol. F/U with ortho to re-evaluate the knee. Also follow up with PCP. Patient and are agreeable and comfortable with plan of care. all questions are sought and answered,. Diagnostic Imaging Diagonstic Imaging: Xray, Ultrasound Plain Films/CT/US/NM/MRI: chest, leg Comments [facility], [facility]. [place], [place] NAME: CAYLATYLER MED REC#: [id number] PT STATUS: REG ER : 1965 PHYSICIAN: YAEL READ MD ADMIT DATE: 02/03/21/ER Draft Date of Exam:02/03/21 CHEST 1 VIEW, AP/PA ONLY EXAMINATION: Chest 1 view HISTORY: Fall, chest pain COMPARISON: 10/15/2016 FINDINGS: The lungs are clear without edema or pneumonia. No pleural effusion or pneumothorax. Heart size is normal. IMPRESSION: 1. Clear lungs. Dictated on workstation # [id number] Dict: 02/03/21 1208 Trans: 02/03/21 1209 [facility] [id number] Interpreted by: GABO BARNHART MD Electronically signed by: [place], [place] NAME: TYLER KULKARNI [facility] REC#: [id number] PT STATUS: REG ER : 1965 PHYSICIAN: YAEL READ MD ADMIT DATE: 02/03/21/ER Draft Date of Exam:02/03/21 US VENOUS LOWER EXT LT EXAMINATION: US Lower Extremity Venous Duplex Left. TECHNIQUE: Multiple real-time grayscale images were obtained over the left lower extremity in various projections. Additional spectral analysis and color Doppler duplex images were also obtained. HISTORY: Swelling COMPARISON: None available. FINDINGS: The left common femoral vein, deep femoral vein, superficial femoral vein and popliteal vein are patent with normal serrano scale and doppler appearance. There is normal respiratory variation and augmentation. IMPRESSION: 1. No DVT of the left lower extremity. Dictated on workstation # [id number] Dict: 02/03/21 1327 Trans: 02/03/21 1400 [facility] [id number] Interpreted by: GABO BARNHART MD Electronically signed by: Departure Impression Primary Impression: Pain of left calf Disposition: 01 HOME, SELF-CARE Condition: Stable Departure-Patient Inst. Decision time for Depature: 14:04 Referrals: VIKASH KEYES DO (PCP/Family) Primary Care Physician Patient Instructions: Calf Stretches Add. Discharge Instructions: Alternate heat and ice packs to the left calf as needed for discomfort. You can also take [id number] Tylenol extra strength, 2 tablets every 6 hours as needed for pain. Gentle calf stretches. Follow-up with orthopedics to reevaluate your left knee and your primary care physician. Return to the emergency room for any increasing pain, swelling, numbness, fever or other emergent concerns. YAEL READ MD Feb 03, 2021 11:12
[2021-02-03 11:31] LABS: BASOPHILS # (AUTO) 0.1 10^3/uL (0.0-0.1); BASOPHILS % (AUTO) 1 % (0-10); EOSINOPHILS # (AUTO) 0.3 10^3/uL (0.0-0.3); EOSINOPHILS % (AUTO) 6 % (0-10); HEMATOCRIT 39 % (40-54); HEMOGLOBIN 13.5 g/dL (13.3-17.7); LYMPHOCYTES # (AUTO) 1.4 10^3/uL (1.0-4.0); LYMPHOCYTES % (AUTO) 28 % (12-44); MEAN CORPUSCULAR HEMOGLOBIN 31 pg (25-34); MEAN CORPUSCULAR HGB CONC 34 g/dL (32-36); MEAN CORPUSCULAR VOLUME 90 fL (80-99); MEAN PLATELET VOLUME 10.2 fL (9.0-12.2); MONOCYTES # (AUTO) 0.3 10^3/uL (0.0-1.0); MONOCYTES % (AUTO) 7 % (0-12); NEUTROPHILS # (AUTO) 2.9 10^3/uL (1.8-7.8); NEUTROPHILS % (AUTO) 59 % (42-75); PLATELET COUNT 185 10^3/uL (130-400)
[2021-02-03 11:35] LABS: POTASSIUM 3.8 MMOL/L (3.6-5.0)
[2021-02-03 11:37] LABS: CALCIUM 9.3 MG/DL (8.5-10.1)
[2021-02-03 11:41] LABS: CREATININE SERUM 0.89 MG/DL (0.60-1.30)
[2021-02-03 12:01] LABS: FIBRIN DEGRADATION PRODUCTS < 0.27 UG/ML (0.00-0.49); INR 0.9 (0.8-1.4); PARTIAL THROMBOPLASTIN TIME 30 SEC (24-35); PROTHROMBIN TIME PATIENT 12.6 SEC (12.2-14.7)
--- NOTE | 2021-02-03 12:09 | Diagnostic Imaging Report ---
EXAMINATION: Chest 1 view HISTORY: Fall, chest pain COMPARISON: 10/15/2016 FINDINGS: The lungs are clear without edema or pneumonia. No pleural effusion or pneumothorax. Heart size is normal. IMPRESSION: 1. Clear lungs. Dictated by: Dictated on workstation # [id number]
--- NOTE | 2021-02-03 14:01 | Diagnostic Imaging Report ---
EXAMINATION: US Lower Extremity Venous Duplex Left. TECHNIQUE: Multiple real-time grayscale images were obtained over the left lower extremity in various projections. Additional spectral analysis and color Doppler duplex images were also obtained. HISTORY: Swelling COMPARISON: None available. FINDINGS: The left common femoral vein, deep femoral vein, superficial femoral vein and popliteal vein are patent with normal serrano scale and doppler appearance. There is normal respiratory variation and augmentation. IMPRESSION: 1. No DVT of the left lower extremity. Dictated by: Dictated on workstation # [id number]
[2021-02-03 14:10] VITALS: BP 145/92
== END 2021-02-03 14:11 | disposition home or self-care (01) ==
LOC: EDUNIT# 10:47 → ER 10:49
DX: S80.812A Abrasion, left lower leg, initial encounter (principal); G47.30 Sleep apnea, unspecified; I10 Essential (primary) hypertension; E03.9 Hypothyroidism, unspecified; E78.00 Pure hypercholesterolemia, unspecified; F41.9 Anxiety disorder, unspecified; I25.10 Atherosclerotic heart disease of native coronary artery without angina pectoris; Z79.890 Hormone replacement therapy; Z79.82 Long term (current) use of aspirin; Z79.899 Other long term (current) drug therapy; W19.XXXA Unspecified fall, initial encounter
CPT/HCPCS: 36415; 71045; 80048; 85025; 85379; 85610; 85730

== ENCOUNTER 2021-05-16 07:38 | Emergency (ER) | payer BC ==
[~2021-05-16] VITALS: Ht 165 cm; Wt 89.0 kg
[~2021-05-16 07:38] MED LIST changes: +SCOP1PAT10 TD; -SCOP1PAT11 TD
[2021-05-16 07:41] VITALS: BP 174/103
[2021-05-16] MEDS ORDERED: IBUPROFEN 600 MG (MOTRIN) TAB PO ONE (08:15)
[2021-05-16] MEDS ORDERED: LIDOCAINE 2% VISCOUS 15 ML UDC PO ONE (08:15)
[2021-05-16] MEDS ORDERED: ANTACID SUSP 30 ML UDC (MYLANTA) PO ONE (08:15)
[2021-05-16] MEDS ORDERED: ALPRAZolam 0.25 MG (XANAX) TAB PO ONE (08:15)
--- NOTE | 2021-05-16 08:18 | ED Cough/URI ---
General Chief Complaint: Cough/Cold/Flu Symptoms Stated Complaint: SORE THROAT, EARACHE Nursing Triage Note: ONSET OF HEADACH AND SORETHROAT WAS SEEN AT [facility] YESTERDAY TOLD EVERYING OK NO MEDS GIVEN. HAD COVID 1 YEAR AGO (DEE HALLMAN MED STUDENT) History of Present Illness Date Seen by Provider: May 16, 2021 Time Seen by Provider: 07:55 Initial Comments Mr. Kulkarni is a 56yoM with a history of HTN, CAD post stent placement 2018 and MARY who presents to ED this morning by private vehicle with cc of throat pain and ear ache associated with congestion, difficulty swallowing and inability to get a full breath. He has a history of panic attacks for which he is prescribed Alprazolam 0.25mg, and he took a dose around 0700 because he was feeling anxious and SOA. He rates the pain in his throat and ear as a 9/10, especially when swallowing. He first noticed these symptoms Friday morning and went to [facility] yesterday where he was told to take Ibuprofen q8h but this has not helped. He is able to swallow liquids and foods and denies fever, chills, chest pain, palpitations, heartburn, diarrhea and cough. He denies sick contacts. He recovered from Covid-19 1 year ago and has not been vaccinated. Patient will be given dose of Alprazolam while we await results of strep test. Timing/Duration: getting worse Severity/Quality: mild Prior Episodes/Possible Cause: no prior episodes Modifying Factors: Improves With Other (swallowing worsens pain) Associated Symptoms: earache (right ear), nasal congestion, sore throat (DEE HALLMAN STUDENT) Allergies and Home Medications Allergies Coded Allergies: Penicillins (Unverified Allergy, Mild, 08/28/20) Patient Home Medication List Home Medication List Reviewed: Yes (YAEL READ MD) Acyclovir (Acyclovir) 800 Mg Tablet, 800 MG PO DAILY, (Reported) Entered as Reported by: TOMMY EUBANKS on 08/28/20 1110 Alprazolam (Alprazolam) 0.5 Mg Tablet, 0.25 MG PO Q12H, (Reported) Entered as Reported by: TOMMY EUBANKS on 08/28/20 1110 Aspirin (Aspirin) 81 Mg Tab.chew, 81 MG PO DAILY, (Reported) Entered as Reported by: TOMMY EUBANKS on 08/28/201109 Atorvastatin Calcium (Atorvastatin Calcium) 80 Mg Tablet, 80 MG PO DAILY, (Reported) Entered as Reported by: TOMMY EUBANKS on 08/28/201109 B Complex with Vitamin C (Super B Complex-Vitamin C) 1 Each Tablet, 1 EACH PO DAILY, (Reported) Entered as Reported by: TOMMY EUBANKS on 08/28/201109 Buspirone HCl (Buspirone HCl) 5 Mg Tablet, 5 MG PO BID, (Reported) Entered as Reported by: TOMMY EUBANKS on 08/28/201109 Carvedilol (Carvedilol) 12.5 Mg Tablet, 12.5 MG PO BID, (Reported) Entered as Reported by: TOMMY EUBANKS on 08/28/201109 Cholecalciferol (Vitamin D3) (Vitamin D3) 125 Mcg Capsule, 125 MCG PO DAILY, (Reported) Entered as Reported by: TOMMY EUBANKS on 08/28/201109 Clopidogrel Bisulfate (Plavix) 75 Mg Tablet, 75 MG PO DAILY, (Reported) Entered as Reported by: TOMMY EUBANKS on 08/28/201109 Green Tea [place] Extract (Green Tea) 1 Each Capsule, 1 EACH PO DAILY, (Reported) Entered as Reported by: TOMMY EUBANKS on 08/28/201109 Hydrocodone/Acetaminophen (Hydrocodone-Acetamin 7.5-325) 1 Each Tablet, 1 EACH PO Q4H Prescribed by: TOMMY EUBANKS on 09/06/20 0930 Levothyroxine Sodium (Levothyroxine Sodium) 75 Mcg Tablet, 75 MCG PO DAILY, (Reported) Entered as Reported by: TOMMY EUBANKS on 08/28/201109 Lisinopril (Lisinopril) 40 Mg Tablet, 40 MG PO DAILY, (Reported) Entered as Reported by: TOMMY EUBANKS on 08/28/201109 Multivitamins (Multivitamins) 1 Each Capsule, 1 EACH PO DAILY, (Reported) Entered as Reported by: YAEL STEPHENS on 06/16/12 0727 Naproxen (Naproxen) 500 Mg Tablet, 500 MG PO Q12H, (Reported) Entered as Reported by: TOMMY EUBANKS on 08/28/20 1110 Ondansetron (Zofran Odt) 4 Mg Tab.rapdis, 4 MG PO Q4H Prescribed by: STEFFEN SAEED on 10/15/16 1008 Tyrosine (Tyrosine) 1 Each Packet, 1 EACH PO DAILY, (Reported) Entered as Reported by: TOMMY Katz CHA on 08/28/20 1110 Review of Systems Review of Systems Constitutional: No chills, No diaphoresis, No dizziness, No fever, No malaise, No weakness EENTM: ear pain, nose congestion, throat pain; No ear discharge, No hearing loss, No eye pain, No hoarseness Respiratory: No cough, No dyspnea on exertion; phlegm, short of breath Cardiovascular: No chest pain, No edema, No palpitations Gastrointestinal: No abdominal pain, No constipation, No diarrhea, No dysphagia, No nausea, No vomiting Genitourinary: No dysuria, No frequency Musculoskeletal: No back pain, No muscle pain Skin: No change in color, No dryness Psychiatric/Neurological: Anxiety Hematologic/Lymphatic: No Symptoms Reported Immunological/Allergic: no symptoms reported (DEE HALLMAN MED STUDENT) Past Pwdjcxq-Xisqxw-Xnsenq Hx Patient Social History Tobacco Use?: No Alcohol Frequency: Rarely (DEE HALLMAN [employer] STUDENT) Past Medical History Surgeries: Yes (left shoulder, left knee scope, nose reconstruction, left toe bone spur ) Cardiac, Coronary Stent, Nose, Orthopedic Respiratory: Yes Sleep Apnea Currently Using CPAP: Yes Cardiac: Yes (heart stents) High Cholesterol, Hypertension Neurological: No Reproductive Disorders: No Sexually Transmitted Disease: No Genitourinary: No Gastrointestinal: No Musculoskeletal: Yes Arthritis Endocrine: No Hypothyroidsim Cancer: No Psychosocial: Yes Anxiety Integumentary: No Blood Disorders: No (DEE HALLMAN [employer] STUDENT) Physical Exam Vital Signs - First Documented 05/16/21 07:41 Temp 36.2 Pulse 100 Resp 18 B/P (MAP) 174/103 (126) Pulse Ox 95 O2 Delivery Room Air (YAEL READ MD) Capillary Refill : (DEE HALLMAN MED STUDENT) Height: 5'5.00" Weight: 180lbs. oz. 81.663246vd; 32.00 BMI Method:Stated General Appearance: WD/WN, no apparent distress Eyes: Bilateral Eye Normal Inspection, Bilateral Eye PERRL HEENT: PERRL/EOMI, TMs normal, pharyngeal erythema, tonsillar exudate Neck: full range of motion, supple, tender lateral (right side) Respiratory: chest non-tender, lungs clear, normal breath sounds, no respiratory distress, no accessory muscle use Cardiovascular: no edema, no gallop, no JVD, no murmur, tachycardia Gastrointestinal: normal bowel sounds, non tender, soft Extremities: normal range of motion, non-tender, no pedal edema, no calf tenderness Neurologic/Psychiatric: plug overwrap machine tender II-XII nml as tested, no motor/sensory deficits, alert, normal mood/affect, oriented x 3 Skin: normal color, warm/dry Lymphatic: no adenopathy (DEE HALLMAN [facility] STUDENT) Progress/Results/Core Measures Suspected Sepsis SIRS Temperature: Pulse: 100 Respiratory Rate: 18 Blood Pressure 174 /103 Mean: 126 (DEE HALLMAN [facility] STUDENT) SIRS Laboratory Tests 05/16/21 08:47: Creatinine 0.80 (YAEL READ MD) Results/Orders Lab Results Laboratory Tests Test 05/16/21 08:06 05/16/21 08:47 Range/Units Group A Streptococcus Screen NEGATIVE NEGATIVE Sodium Level 136 135-145 MMOL/L Potassium Level 4.0 3.6-5.0 MMOL/L Chloride Level 101 98-107 MMOL/L Carbon Dioxide Level 25 21-32 MMOL/L Anion Gap 10 5-14 MMOL/L Blood Urea Nitrogen 15 7-18 MG/DL Creatinine 0.80 0.60-1.30 MG/DL Estimat Glomerular Filtration Rate 101 BUN/Creatinine Ratio 19 Glucose Level 123 H 70-105 MG/DL Calcium Level 9.5 8.5-10.1 MG/DL (YAEL READ MD) Micro Results Microbiology 05/16/21 Throat Culture - Preliminary, Resulted (YAEL READ MD) My Orders Orders - YAEL READ MD Rapid Strep A Screen (05/16/21 08:08) Ibuprofen Tablet (Motrin Tablet) (05/16/21 08:15) Antacid Suspension (Mylanta Suspension (05/16/21 08:15) Lidocaine 2% Viscous 15 Ml (Xylocaine Vi (05/16/21 08:15) Alprazolam Tablet (Xanax Tablet) (05/16/21 08:15) Ed Iv/Invasive Line Start (05/16/21 08:38) Basic Metabolic Panel (05/16/21 08:38) Ct Neck (Soft Tissue) W (05/16/21 08:38) Iohexol Injection (Omnipaque 350 Mg/Ml 1 (05/16/21 09:30) Received Contrast (Hold Metformin- Contr (05/16/21 09:30) Sodium Chloride Flush (Catheter Flush Sy (05/16/21 09:30) Ns (Ivpb) (Sodium Chloride 0.9% Ivpb Bag (05/16/21 09:30) (YAEL READ MD) Medications Given in ED (YAEL READ MD) Vital Signs/I&O 05/16/21 07:41 Temp 36.2 Pulse 100 Resp 18 B/P (MAP) 174/103 (126) Pulse Ox 95 O2 Delivery Room Air (YAEL READ MD) Vital Signs/I&O Capillary Refill : (DEE HALLMAN MED STUDENT) Blood Pressure Mean: 126 Progress Note : Time: 08:29 Progress Note 56-year-old male presents with a chief complaint of sore throat/painful swallow ing onset Friday of this week, 2 days ago. Patient was seen at [facility] clinic yesterday and advised to take ibuprofen. States he has been taking this without any relief of symptoms. Denies any other complaints such as fevers, cough, shortness of breath. No GERD-like symptoms. Did not swallow anything that is concerning for foreign body. Physical exam: Appeared to have a minimal amount of purulence on both tonsillar pillars. No significant erythema. No evidence of oral thrush. No anterior cervical lymphadenopathy. TMs are clear bilaterally. No respiratory distress/ increased work of breathing. Patient was treated in the emergency department with 0.25 mg of Xanax, viscous lidocaine and Maalox suspension and ibuprofen. He states that he did not get any relief from the viscous lidocaine. CT soft tissue neck with IV contrast is negative.. No concerns at this time for epiglottitis/retropharyngeal abscess. Patient seems to be handling his own secretions. Will recommend [id number] Chloraseptic spray and continued use of ibuprofen. Monitor for fever or any other worsening symptoms. Follow-up as needed at the clinic. (YAEL READ MD) Diagnostic Imaging Comments [facility]. [place], [place] NAME: TYLER KULKARNI II [facility] REC#: [id number] PT STATUS: REG ER : 1965 PHYSICIAN: YAEL READ MD ADMIT DATE: 05/16/21/ER Draft Date of Exam:05/16/21 CT NECK (SOFT TISSUE) W PROCEDURE: CT neck soft tissue with contrast. TECHNIQUE: Multiple contiguous axial images were obtained through the neck after the administration of contrast. Auto Exposure Controls were utilized during the CT exam to meet ALARA standards for radiation dose reduction. INDICATION: Right face and neck pain. FINDINGS: There is reversal of cervical lordosis with lower cervical disc space narrowing and endplate spurring. There is no evidence of cervical mass or focal fluid collection. No pathologically enlarged adenopathy is seen. Parotid and submandibular salivary glands are unremarkable. There is no evidence of thyroid gland lesion. There is no tonsillar enlargement or fluid collection. Temporomandibular joints are intact. No obvious great vessel abnormality is seen in the neck. IMPRESSION: No acute abnormality seen to account for patient's symptoms. Dictated on workstation # [id number] Dict: 05/16/21 1015 Trans: 05/16/21 1020 [id number] Interpreted by: ISMAEL MOYA MD Electronically signed by: (YAEL READ MD) Departure Impression Primary Impression: Pharyngitis Qualified Codes: J02.9 - Acute pharyngitis, unspecified Additional Impression: Anxiety Disposition: 01 HOME, SELF-CARE Condition: Stable Departure-Patient Inst. Decision time for Depature: 08:31 (YAEL READ MD) Referrals: VIKASH KEYES DO (PCP/Family) Primary Care Physician Patient Instructions: Sore Throat, Adult (DC) Add. Discharge Instructions: Drink lots of fluids to stay well-hydrated. Continue ibuprofen, 3 tablets every 6 hours with food as needed for pain. You can also use [id number] Chloraseptic spray. You can try over the counter acid reducers such as prilosec or pepcid to help with heartburn symptoms as well that can contribute to throat pain, This is likely a sore throat caused by a virus and should last only a couple more days. Monitor yourself at home for any fever over 100.4. Come back to the emergency room for worsening shortness of breath, high fever, rashes or any other emergent concerning symptoms. Otherwise, please follow-up with your primary care physician. Verification and Attestation of Medical Student E/M Service A medical student performed and documented this service in my presence. I reviewed and verified all information documented by the medical student and made modifications to such information, when appropriate. I personally performed the physical exam and medical decision making. Yael Read, May 16, 2021,08:28 (YAEL READ MD) DEE HALLMAN MED STUDENT May 16, 2021 08:18 YAEL READ MD May 16, 2021 08:34
[2021-05-16 09:15] LABS: CALCIUM 9.5 MG/DL (8.5-10.1)
[2021-05-16 09:19] LABS: CREATININE SERUM 0.8 MG/DL (0.60-1.30)
[2021-05-16] MEDS ORDERED: CATHETER FLUSH 10 ML SYR IV PRN (09:30)
[2021-05-16] MEDS ORDERED: HOLD METFORMIN - RECEIVED CONTRAST 20 ML VIAL IV SCH (09:30)
[2021-05-16] MEDS ORDERED: IOHEXOL 350 MG/ML 100 ML (OMNIPAQUE 350) VIAL IV ONE (09:30)
[2021-05-16] MEDS ORDERED: NS 100 ML (IVPB) BAG IV ONE (09:30)
--- NOTE | 2021-05-16 10:20 | Diagnostic Imaging Report ---
PROCEDURE: CT neck soft tissue with contrast. TECHNIQUE: Multiple contiguous axial images were obtained through the neck after the administration of contrast. Auto Exposure Controls were utilized during the CT exam to meet ALARA standards for radiation dose reduction. INDICATION: Right face and neck pain. FINDINGS: There is reversal of cervical lordosis with lower cervical disc space narrowing and endplate spurring. There is no evidence of cervical mass or focal fluid collection. No pathologically enlarged adenopathy is seen. Parotid and submandibular salivary glands are unremarkable. There is no evidence of thyroid gland lesion. There is no tonsillar enlargement or fluid collection. Temporomandibular joints are intact. No obvious great vessel abnormality is seen in the neck. IMPRESSION: No acute abnormality seen to account for patient's symptoms. Dictated by: Dictated on workstation # [id number]
== END 2021-05-16 11:08 | disposition home or self-care (01) ==
LOC: EDUNIT# 07:38 → ER 07:39
DX: J02.9 Acute pharyngitis, unspecified (principal); F41.9 Anxiety disorder, unspecified; G47.30 Sleep apnea, unspecified; I10 Essential (primary) hypertension; E03.9 Hypothyroidism, unspecified; E78.00 Pure hypercholesterolemia, unspecified; Z79.890 Hormone replacement therapy; Z79.01 Long term (current) use of anticoagulants; Z79.899 Other long term (current) drug therapy; Z79.82 Long term (current) use of aspirin
CPT/HCPCS: 36415; 70491; 80048; 87430

== ENCOUNTER → 2021-12-14 | Outpatient (CLI) | payer BC ==
--- NOTE | 2021-12-14 13:53 | Diagnostic Imaging Report ---
PROCEDURE: US carotid duplex, bilateral. INDICATION: 56-year-old male, dizziness, vertigo, history of hypertension. History of vascular stents. TECHNIQUE: Multiple real-time grayscale images were obtained over the carotid arteries in various projections bilaterally. Additional spectral analysis and color Doppler and Duplex images were also obtained. CORRELATION: None FINDINGS: Right carotid circulation: Mild diffuse plaquing throughout the carotid arteries. The right common carotid artery is normal in course and caliber. The right internal carotid artery is patent. No hemodynamically significant stenosis is present at this time. Right external carotid artery is with mild increased velocity. Left carotid circulation: Mild diffuse plaquing throughout the carotid arteries. The left common carotid artery is normal in course and caliber. The left internal carotid artery is patent. No hemodynamically significant stenosis is present at this time. Left external carotid artery is slightly increased velocity. Antegrade flow in the bilateral vertebral arteries. DOPPLER (peak systolic velocity M/S Right Left CCA .94 .91 ICA Proximal .82 .59 ICA Mid .68 .83 ICA Distal .90 .86 RATIO .96 .95 ECA 1.73 1.24 VERT .33 .44 IMPRESSION: 1. Mild diffuse atherosclerosis involving bilateral carotid arteries. 2. No sonographic evidence to suggest a hemodynamically significant stenosis of the internal carotid arteries at this time. 3. Mild increased velocity of the external carotid arteries, suggesting mild narrowing right greater than left. Parameters based on the consensus panel Moise-Scale and Doppler ultrasound criteria published March 2003, Radiology, Volume 229. Dictated by: Dictated on workstation # [id number]
== END ==
LOC: RAD 11:45
PROVIDERS: ATTEND Internal Medicine
DX: I65.23 Occlusion and stenosis of bilateral carotid arteries (principal); I10 Essential (primary) hypertension
CPT/HCPCS: 93880

== ENCOUNTER 2022-03-18 10:04 | Outpatient (CLI) | payer BC | END 2022-03-18 10:25 | LOC: SLEEP 10:04 | PROVIDERS: ATTEND Internal Medicine | DX: G47.33 Obstructive sleep apnea (adult) (pediatric) (principal); I10 Essential (primary) hypertension | CPT/HCPCS: G0399 ==

== ENCOUNTER 2022-05-10 19:36 | Outpatient (CLI) | payer BC ==
[~2022-05-10 19:36] MED LIST changes: +CLOP-31 PO; -CLOP75TA69 PO
== END 2022-05-11 06:40 | disposition home or self-care (01) ==
LOC: SLEEP 19:36
PROVIDERS: ATTEND Nurse Practitioner Family
DX: Z00.01 Encounter for general adult medical examination with abnormal findings (principal); G47.33 Obstructive sleep apnea (adult) (pediatric); F51.09 Other insomnia not due to a substance or known physiological condition; E03.8 Other specified hypothyroidism; E78.49 Other hyperlipidemia; F41.8 Other specified anxiety disorders; I10 Essential (primary) hypertension; R68.82 Decreased libido
CPT/HCPCS: 95811

== ENCOUNTER 2022-09-01 18:05 | Emergency (ER) | payer BC ==
[~2022-09-01] VITALS: Ht 165.1 cm; Wt 83.9 kg
--- NOTE | 2022-09-01 18:29 | ED General ---
General Stated Complaint: INJ TONGUE Source of Information: Patient Exam Limitations: No Limitations History of Present Illness Date Seen by Provider: Sep 01, 2022 Time Seen by Provider: 18:14 Initial Comments Here with report of bleeding to the tip of his tongue after he bit his tongue while eating tonight. He is on Plavix and aspirin and states he has not been able to get it to stop bleeding despite using ice and some pressure using hydrogen peroxide to the tip. Denies other injury or concerns. Occurred approximately an hour ago. Does have history of heart stents and hypertension. Timing/Duration: 1 Hour Severity: Mild Allergies and Home Medications Allergies Coded Allergies: Penicillins (Unverified Allergy, Mild, 08/28/20) Patient Home Medication List Home Medication List Reviewed: Yes Acyclovir (Acyclovir) 800 Mg Tablet, 800 MG PO DAILY, (Reported) Entered as Reported by: TOMMY EUBANKS on 08/28/20 111 Alprazolam (Alprazolam) 0.5 Mg Tablet, 0.25 MG PO Q12H, (Reported) Entered as Reported by: TOMMY EUBANKS on 08/28/20 111 Aspirin (Aspirin) 81 Mg Tab.chew, 81 MG PO DAILY, (Reported) Entered as Reported by: TOMMY EUBANKS on 08/28/201109 Atorvastatin Calcium (Atorvastatin Calcium) 80 Mg Tablet, 80 MG PO DAILY, (Reported) Entered as Reported by: TOMMY EUBANKS on 08/28/201109 B Complex with Vitamin C (Super B Complex-Vitamin C) 1 Each Tablet, 1 EACH PO DAILY, (Reported) Entered as Reported by: TOMMY EUBANKS on 08/28/20 111 Buspirone HCl (Buspirone HCl) 5 Mg Tablet, 5 MG PO BID, (Reported) Entered as Reported by: TOMMY EUBANKS on 08/28/20 111 Carvedilol (Carvedilol) 12.5 Mg Tablet, 12.5 MG PO BID, (Reported) Entered as Reported by: TOMMY EUBANKS on 08/28/201109 Cholecalciferol (Vitamin D3) (Vitamin D3) 125 Mcg Capsule, 125 MCG PO DAILY, (Reported) Entered as Reported by: TOMMY EUBANKS on 08/28/20 111 Clopidogrel Bisulfate (Plavix) 75 Mg Tablet, 75 MG PO DAILY, (Reported) Entered as Reported by: TOMMY EUBANKS on 08/28/20 111 Green Tea [place] Extract (Green Tea) 1 Each Capsule, 1 EACH PO DAILY, (Reported) Entered as Reported by: TOMMY EUBANKS on 08/28/20 111 Hydrocodone/Acetaminophen (Hydrocodone-Acetamin 7.5-325) 1 Each Tablet, 1 EACH PO Q4H Prescribed by: TOMMY EUBANKS on 09/06/20 0930 Levothyroxine Sodium (Levothyroxine Sodium) 75 Mcg Tablet, 75 MCG PO DAILY, (Reported) Entered as Reported by: TOMMY EUBANKS on 08/28/20 111 Lisinopril (Lisinopril) 40 Mg Tablet, 40 MG PO DAILY, (Reported) Entered as Reported by: TOMMY EUBANKS on 08/28/20 111 Multivitamins (Multivitamins) 1 Each Capsule, 1 EACH PO DAILY, (Reported) Entered as Reported by: YAEL STEPHENS on 06/16/12 0727 Naproxen (Naproxen) 500 Mg Tablet, 500 MG PO Q12H, (Reported) Entered as Reported by: TOMMY EUBANKS on 08/28/20 111 Ondansetron (Zofran Odt) 4 Mg Tab.rapdis, 4 MG PO Q4H Prescribed by: STEFFEN SAEED on 10/15/16 1008 Tyrosine (Tyrosine) 1 Each Packet, 1 EACH PO DAILY, (Reported) Entered as Reported by: TOMMY EUBANKS on 08/28/20 111 Review of Systems Review of Systems Constitutional: No chills, No fever EENTM: see HPI, other (Tongue injury to the tip with mild bleeding) Respiratory: no symptoms reported Cardiovascular: no symptoms reported Past Uxkiazx-Yedmjs-Iqzapu Hx Patient Social History Tobacco Use?: No Alcohol Use?: Yes Alcohol Frequency: Daily Past Medical History Surgeries: Yes (left shoulder, left knee scope, nose reconstruction, left toe bone spur ) Cardiac, Coronary Stent, Nose, Orthopedic Respiratory: Yes Sleep Apnea Currently Using CPAP: Yes Cardiac: Yes (heart stents) High Cholesterol, Hypertension Neurological: No Reproductive Disorders: No Sexually Transmitted Disease: No Genitourinary: No Gastrointestinal: No Musculoskeletal: Yes Arthritis Endocrine: No Hypothyroidsim Cancer: No Psychosocial: Yes Anxiety Integumentary: No Blood Disorders: No Family Medical History Reviewed Nursing Family Hx Physical Exam Vital Signs Vital Signs - First Documented 09/01/22 18:15 Temp 36.7 Pulse 88 Resp 17 B/P (MAP) 160/102 (121) O2 Delivery Room Air Capillary Refill : Height, Weight, BMI Height: 5'5.00" Weight: 180lbs. oz. 81.967565yq; 32.00 BMI Method:Stated General Appearance: No Apparent Distress, WD/WN HEENT: PERRL/EOMI, Pharynx Normal, Other (2 x 3 mm area of flap to the tip of the tongue is oozing blood but easily tamponade with direct pressure.) Respiratory: Lungs Clear, Normal Breath Sounds Cardiovascular: Regular Rate, Rhythm, No Murmur Neurologic/Psychiatric: Alert, Oriented x3 Skin: Normal Color, Warm/Dry Progress/Results/Core Measures Suspected Sepsis SIRS Temperature: Pulse: Respiratory Rate: Blood Pressure / Mean: Results/Orders Vital Signs/I&O 09/01/22 18:15 Temp 36.7 Pulse 88 Resp 17 B/P (MAP) 160/102 (121) O2 Delivery Room Air Capillary Refill : Progress Note : Progress Note Seen and evaluated. We will initiate direct pressure and and have patient hold that for 10 minutes and see if we can get bleeding to the tip of the tongue to stop. This was discussed with the patient who agrees. Monitor patient. 1850: Bleeding has stopped. He feels comfortable going home and I believe he will respond well to direct pressure and time. Discharged home with return precautions. Patient verbalized understanding of instructions and agreement with plan. Departure Impression Primary Impression: Abrasion of tongue Qualified Codes: S00.512A - Abrasion of oral cavity, initial encounter Disposition: 01 HOME, SELF-CARE Condition: Improved Departure-Patient Inst. Decision time for Depature: 18:52 Referrals: VIKASH KEYES DO (PCP/Family) Primary Care Physician Patient Instructions: Wound Care (DC) Add. Discharge Instructions: You may use direct pressure to the wound on the tongue if it starts rebleeding. Eat soft diet for the next 24 hours and then return to normal. You may rinse your mouth with cool water to help reduce chance of rebleeding. Continue to brush your teeth as normal. Return for worse pain, persistent or uncontrolled bleeding or other concerns as needed. Follow-up with your doctor as needed. NI GALVEZ MD Sep 01, 2022 18:29
[2022-09-01 18:57] VITALS: BP 154/86
== END 2022-09-01 18:57 | disposition home or self-care (01) ==
LOC: EDUNIT# 18:05 → ER 18:09
DX: S00.512A Abrasion of oral cavity, initial encounter (principal); Z79.02 Long term (current) use of antithrombotics/antiplatelets; Z79.82 Long term (current) use of aspirin; Z28.310 Unvaccinated for COVID-19; W26.8XXA Contact with other sharp object(s), not elsewhere classified, initial encounter
CPT/HCPCS: 99281

== ENCOUNTER 2023-04-02 10:42 | Emergency (ER) | payer BC ==
[~2023-04-02] VITALS: Ht 165.1 cm; Wt 87.0 kg
[~2023-04-02 10:42] MED LIST changes: -MECL-149 PO; +MECL-291 PO
[2023-04-02] MEDS ORDERED: LIDOCAINE 1% INJ 20 ML VIAL INJ ONE (11:15)
--- NOTE | 2023-04-02 12:53 | ED Upper Extremity ---
General Chief Complaint: Foreign Body Stated Complaint: SPLINTER IN LT THUMB Nursing Triage Note: 1040 patient was helping a friend with stacking wood and was injured by a splinter in his left thumb. Source: patient Exam Limitations: no limitations History of Present Illness Date Seen by Provider: Apr 02, 2023 Time Seen by Provider: 10:57 Initial Comments This 58-year-old gentleman presents to the emergency room with a long splinter lodged in his left thumb. The entry point is proximal to the IP joint on the palmar aspect. He believes the splinter is quite long. He was unable to remove it and states it prevents him from flexing his thumb. He is up-to-date on his tetanus immunization. The injury occurred about 1 hour ago while moving 2x4s. . Allergies and Home Medications Allergies Coded Allergies: Penicillins (Unverified Allergy, Mild, 04/02/23) Patient Home Medication List Home Medication List Reviewed: Yes Acyclovir (Acyclovir) 800 Mg Tablet, 800 MG PO DAILY, (Reported) Entered as Reported by: TOMMY EUBANKS on 08/28/20 111 Alprazolam (Alprazolam) 0.5 Mg Tablet, 0.25 MG PO Q12H, (Reported) Entered as Reported by: TOMMY EUBANKS on 08/28/20 111 Aspirin (Aspirin) 81 Mg Tab.chew, 81 MG PO DAILY, (Reported) Entered as Reported by: TOMMY EUBANKS on 08/28/20 111 Atorvastatin Calcium (Atorvastatin Calcium) 80 Mg Tablet, 80 MG PO DAILY, (Reported) Entered as Reported by: TOMMY EUBANKS on 08/28/20 111 B Complex with Vitamin C (Super B Complex-Vitamin C) 1 Each Tablet, 1 EACH PO DAILY, (Reported) Entered as Reported by: TOMMY EUBANKS on 08/28/20 111 Buspirone HCl (Buspirone HCl) 5 Mg Tablet, 5 MG PO BID, (Reported) Entered as Reported by: TOMMY EUBANKS on 08/28/20 111 Carvedilol (Carvedilol) 12.5 Mg Tablet, 12.5 MG PO BID, (Reported) Entered as Reported by: TOMMY EUBANKS on 08/28/20 111 Cholecalciferol (Vitamin D3) (Vitamin D3) 125 Mcg Capsule, 125 MCG PO DAILY, (Reported) Entered as Reported by: TOMMY EUBANKS on 08/28/20 111 Clopidogrel Bisulfate (Plavix) 75 Mg Tablet, 75 MG PO DAILY, (Reported) Entered as Reported by: TOMMY EUBANKS on 08/28/20 111 Green Tea S[place]ia Extract (Green Tea) 1 Each Capsule, 1 EACH PO DAILY, (Reported) Entered as Reported by: TOMMY EUBANKS on 08/28/20 111 Hydrocodone/Acetaminophen (Hydrocodone-Acetamin 7.5-325) 1 Each Tablet, 1 EACH PO Q4H Prescribed by: TOMMY EUBANKS on 09/06/20 0930 Levothyroxine Sodium (Levothyroxine Sodium) 75 Mcg Tablet, 75 MCG PO DAILY, (Reported) Entered as Reported by: TOMMY EUBANKS on 08/28/20 111 Lisinopril (Lisinopril) 40 Mg Tablet, 40 MG PO DAILY, (Reported) Entered as Reported by: TOMMY EUBANKS on 08/28/20 111 Multivitamins (Multivitamins) 1 Each Capsule, 1 EACH PO DAILY, (Reported) Entered as Reported by: YAEL STEPHENS on 06/16/12 0727 Naproxen (Naproxen) 500 Mg Tablet, 500 MG PO Q12H, (Reported) Entered as Reported by: TOMMY EUBANKS on 08/28/20 111 Ondansetron (Zofran Odt) 4 Mg Tab.rapdis, 4 MG PO Q4H Prescribed by: STEFFEN SAEED on 10/15/16 1008 Sulfamethoxazole/Trimethoprim (Bactrim Ds Tablet) 1 Each Tablet, 1 EACH PO BID Prescribed by: ALBINA WEINER on 04/02/23 1257 Tyrosine (Tyrosine) 1 Each Packet, 1 EACH PO DAILY, (Reported) Entered as Reported by: TOMMY EUBANKS on 08/28/20 111 Review of Systems Constitutional: no symptoms reported EENTM: no symptoms reported Respiratory: no symptoms reported Cardiovascular: no symptoms reported Gastrointestinal: no symptoms reported Genitourinary: no symptoms reported Musculoskeletal: see HPI Skin: see HPI Psychiatric/Neurological: No Symptoms Reported Past Nvekvgb-Vuhgdd-Irvylr Hx Patient Social History Tobacco Use?: No Use of E-Cig and/or Vaping dev: No Substance use?: No Alcohol Use?: Yes Alcohol type: Beer Alcohol Frequency: Couple times a week Pt feels they are or have been: No Immunizations Up To Date Influenza Vaccine Up-to-Date: No; Not Current First/Initial COVID19 Vaccinat: not vacc Past Medical History Surgery/Hospitalization HX: cardiac stints, left knee surg, left shoulder surgery, nose surg htn, anxiety Surgeries: Yes (left shoulder, left knee scope, nose reconstruction, left toe bone spur ) Cardiac, Coronary Stent, Nose, Orthopedic Respiratory: Yes Sleep Apnea Currently Using CPAP: Yes Cardiac: Yes (heart stents) Coronary Artery Disease, High Cholesterol, Hypertension Neurological: No Reproductive Disorders: No Sexually Transmitted Disease: No Genitourinary: No Gastrointestinal: No Musculoskeletal: Yes Arthritis Endocrine: No Hypothyroidsim Cancer: No Psychosocial: Yes Anxiety Integumentary: No Blood Disorders: No Physical Exam Vital Signs Vital Signs - First Documented 04/02/23 10:54 Temp 36.8 Pulse 87 Resp 18 B/P (MAP) 161/93 (115) Pulse Ox 95 O2 Delivery Room Air Capillary Refill : Less Than 3 Seconds Height, Weight, BMI Height: 5'5.00" Weight: 180lbs. oz. 81.734312hy; 31.00 BMI Method:Stated General Appearance: WD/WN, no apparent distress HEENT: normal ENT inspection Elbow/Forearm: normal inspection, non-tender, no evidence of injury, normal ROM Wrist: Yes normal inspection, Yes non-tender, Yes no evidence of injury, Yes normal ROM Hand: Left (Puncture of the proximal palmar aspect of the left thumb with wood foreign body extending distally. Limited flexion of thumb. Distal sensation and capillary refill intact.) Neurologic/Psychiatric: no motor/sensory deficits, alert, normal mood/affect, oriented x 3 Skin: normal color, warm/dry, other (See extremity exam above) Procedures/Interventions Additional Procedures: Digital Block Progress Digital block and foreign body removal was performed. Base of the thumb was scrubbed with alcohol wipes. Digital block was performed with about 5 mL of 1% lidocaine. Betadine was applied. The wooden foreign body was grasped with hemostats but could not be extracted with reasonable force. A scalpel was then used to make a small extension of the puncture site distally about 4 mm in length directly over the splinter. The splinter was then lifted and grasped with hemostats and carefully extracted by applying pressure in a distal to proximal direction. The splinter appeared to be intact and measured 3.3 cm in length. Patient was then freely able to flex his thumb. Hand was soaked in water and chlorhexidine soap and wound was allowed to bleed. Progress/Results/Core Measures Results/Orders My Orders Medications Given in ED Vital Signs/I&O Blood Pressure Mean: 115 Progress Progress Note : Progress Note Wooden splinter was extracted under digital block as described in the procedure section. Bactrim was provided for prophylaxis. See discharge instructions for further discussion. Departure Impression Primary Impression: Foreign body of finger of left hand Qualified Codes: S60.459A - Superficial foreign body of unspecified finger, initial encounter Disposition: HOME, SELF-CARE Condition: Improved Departure-Patient Inst. Decision time for Depature: 12:55 Referrals: VIKASH KEYES DO (PCP/Family) Primary Care Physician Patient Instructions: Removal of Foreign Body in Skin Add. Discharge Instructions: Keep your thumb covered until it stops draining/bleeding. Additionally cover anytime you are working or in a dirty environment. Do not submerge until the skin has healed over completely to close off the wound. You may wash your hands and shower as usual. You may use ibuprofen up to 600 mg every 6 hours as needed and/or Tylenol (acetaminophen) up to 1000 mg every 6 hours as needed for pain. Elevation should also help with pain and swelling. Complete the entire course of your antibiotics as prescribed. If you develop escalating pain, redness, hea t, swelling, puslike drainage, or fever, return to care promptly for reevaluation. All discharge instructions reviewed with patient and/or family. Voiced understanding. Scripts Sulfamethoxazole/Trimethoprim (Bactrim Ds Tablet) 1 Each Tablet 1 EACH PO BID, #14 TAB Prov: ALBINA SEAY MD 04/02/23 ALBINA SEAY MD Apr 02, 2023 12:53
[2023-04-02] MEDS ORDERED: SULF1TAB38 PO (12:57)
[2023-04-02] MEDS ORDERED: Sulfamethoxazole/Trimethoprim DS TABLET PO ONE (13:00)
[2023-04-02 13:10] VITALS: BP 162/98
== END 2023-04-02 13:10 | disposition home or self-care (01) ==
LOC: EDUNIT# 10:42 → ER 10:43
DX: S60.352A Superficial foreign body of left thumb, initial encounter (principal); G47.30 Sleep apnea, unspecified; Z99.89 Dependence on other enabling machines and devices; Z88.0 Allergy status to penicillin; W45.8XXA Other foreign body or object entering through skin, initial encounter
CPT/HCPCS: 99282